=== PATIENT | female | born 1975 | race Caucasian/White ===

== ENCOUNTER 2017-07-13 23:56 | Emergency (ER) | payer OTHER ==
[2017-07-14] MEDS ORDERED: Promethazine HCl 25 MG/ML VIAL ONE (01:09)
[2017-07-14 01:47] LABS: Hemoglobin 12.4 g/dL (12.0-16.0); Mean Corpuscular HGB CONC 35.8 g/dL (32.0-36.0); Mean Corpuscular Hemoglobin 32.3 pg (27.0-31.0); Mean Corpuscular Volume 90.1 fl (81.0-99.0); Mean Platelet Volume 7.3 fL (7.4-10.4); Platelet Count 195 thou/uL (130-400); RBC Distribution Width 11.4 % (11.5-14.5); Red Blood Cell (RBC) Count 3.84 mill/uL (4.20-5.40); White Blood Cell (WBC) Count 5.5 thou/uL (4.8-10.8)
[2017-07-14 01:57] LABS: ALT (SGPT) 15 U/L (8-55); AST (SGOT) 13 U/L (5-34); Albumin 3.8 g/dL (3.5-5.0); Alkaline Phosphatase 52 U/L (40-150); Anion Gap 12 mmol/L (10-20); BUN (Urea Nitrogen) 9 mg/dL (7.0-18.7); Bilirubin, Total 0.9 mg/dL (0.2-1.2); Calc. Creatinine Clearance 0 mL/min (70-130); Calcium 8.4 mg/dL (7.8-10.44); Carbon Dioxide 25 mmol/L (22-29); Chloride 107 mmol/L (98-107); Estimated GFR-MDRD Greater than 90; Globulin 2.1 g/dL (2.4-3.5); Glucose 98 mg/dL (70-105); Lipase 34 U/L (8-78); Potassium 3.8 mmol/L (3.5-5.1); Protein, Total 5.9 g/dL (6.0-8.3); Sodium 140 mmol/L (136-145)
[2017-07-14 01:58] LABS: Band 1 % (5-11); Eosinophils 2 % (0-10); Lymphocytes 32 % (21-51); MDiff Complete? YES; Monocytes 7 % (0-10); Neutrophil 58 % (42-75)
[2017-07-14] MEDS ORDERED: diphenhydrAMINE 50 MG/ML VIAL ONE (02:29)
== END 2017-07-14 03:04 | disposition home or self-care (01) ==
LOC: SCSER 23:56
DX: R19.7 Diarrhea, unspecified (principal); R11.0 Nausea
CPT/HCPCS: 80053; 82150; 83690; 85025; 86140; 96365; 96366; 96375; J1200; J2550

== ENCOUNTER 2018-01-15 06:20 | Observation (INO) | payer OTHER, SELFPAY ==
[2018-01-15] MEDS ORDERED: Fentanyl 100 MCG/2 ML VIAL ONE ×2 (06:53→08:02)
[2018-01-15 07:04] LABS: Bilirubin Small (Negative); Blood, Urine Moderate (Negative); Clarity Turbid (Clear); Glucose, Urine (Dipstick) Negative (Negative); Leukocyte Negative (Negative); Nitrite Negative (Negative); Protein, Urine (Dipstick) 30 mg/dL (Neg-Trace); pH, Urine 5.5 (5.0-9.0)
[2018-01-15 07:04] LABS: #Basophils 0.1 thou/uL (0.0-0.2); #Lymphocytes 1.9 thou/uL (1.20-3.40); #Monocytes 0.8 thou/uL (0.11-0.59); #Neutrophils 9.6 thou/uL (1.40-6.50); %Basophils 0.7 % (0.0-1.0); %Eosinophils 0.2 % (0.0-10.0); %Lymphocytes 15.4 % (21.0-51.0); %Monocytes 6.6 % (0.0-10.0); %Neutrophils 77.1 % (42.0-75.0); Hemoglobin 15.2 g/dL (12.0-16.0); Mean Corpuscular HGB CONC 34.2 g/dL (32.0-36.0); Mean Corpuscular Hemoglobin 30.7 pg (27.0-31.0); Mean Corpuscular Volume 89.8 fL (78.0-98.0); Mean Platelet Volume 9.3 fL (7.4-10.4); Platelet Count 210 thou/uL (130-400); RBC Distribution Width 11.9 % (11.5-14.5); Red Blood Cell (RBC) Count 4.96 mill/uL (4.20-5.40); White Blood Cell (WBC) Count 12.4 thou/uL (4.8-10.8)
[2018-01-15 07:17] LABS: Bacteria/HPF 4+ HPF (None Seen); Hyaline Casts/LPF NONE SEEN LPF (0-3 Hyaline); Specific Gravity, Urine 1.023 (1.002-1.036)
[2018-01-15 07:17] LABS: ALT (SGPT) 14 U/L (8-55); AST (SGOT) 13 U/L (5-34); Albumin 4.5 g/dL (3.5-5.0); Alkaline Phosphatase 73 U/L (40-150); Anion Gap 15 mmol/L (10-20); BUN (Urea Nitrogen) 10 mg/dL (7.0-18.7); Bilirubin, Total 1.5 mg/dL (0.2-1.2); Calc. Creatinine Clearance 0 mL/min (70-130); Calcium 9.6 mg/dL (7.8-10.44); Carbon Dioxide 25 mmol/L (22-29); Chloride 103 mmol/L (98-107); Estimated GFR-MDRD 89; Glucose 96 mg/dL (70-105); Lipase 30 U/L (8-78); Potassium 3.5 mmol/L (3.5-5.1); Protein, Total 7.5 g/dL (6.0-8.3); Sodium 139 mmol/L (136-145)
--- NOTE | 2018-01-15 08:49 | CT ---
ABDOMEN CT SCAN WITHOUT IV CONTRAST: HISTORY: A 42-year-old female with a history of abdominal pain with nausea, vomiting, and diarrhea. HISTORY: of prior hysterectomy and cholecystectomy. FINDINGS: The lung bases are clear. Status post cholecystectomy with some mild dilatation of the common bile d uct and central intrahepatic ducts. The visualized pancreas, spleen, and adrenal glands appear withi n normal limits. Multiple nonobstructing bilateral renal calculi. No evidence for overt acute ob struction. There are some fairly marked edematous changes and wall thickening of the distal transver se colon extending from near the level of the splenic flexure approximately over a course of 10-15 cm . There is no evidence for associated diverticulum. This abnormal thickening is nonspecific but foc al acute colitis would be a strong consideration. I think this would be unlikely to represent neopla sm given the length of involvement. Also, diverticulitis would be considered unlikely since there ar e no diverticula and this is an unusual place for diverticulitis, but any nonspecific focal colitis c ould certainly have this appearance. There is no evidence for significant small bowel dilatation. T here are some loops of small bowel which have some borderline thickened serrano, but this is probably r elated to under distention. There is a normal-appearing appendix. A 3.7 cm diameter left ovarian/ad nexal cyst. No abscess or abnormal fluid collection. IMPRESSION: Fairly long segment of marked abnormal wall thickening involving the distal transverse colon, possibl y some type of nonspecific colitis. Multiple nonobstructing bilateral renal calculi, but no evidence for an overt obstruction. Normal-appearing appendix. Status post cholecystectomy. A 3.7 cm alba meter left ovarian/adnexal cyst. POS: [facility]
[2018-01-15] MEDS ORDERED: Ondansetron PF 4 MG/2 ML Vial ONE (10:03)
[2018-01-15] MEDS ORDERED: methylPREDNISolone Sod Succ/PF 125 MG/2 ML VIAL ONE (10:17)
[2018-01-15] MEDS ORDERED: Sterile Water 10 ML ONE (10:18)
[2018-01-15] MEDS ORDERED: diphenhydrAMINE 50 MG/ML VIAL ONE (10:18)
[2018-01-15] MEDS ORDERED: Albuterol Sulfate 2.5 mg/0.5 ml Neb ONE (10:27)
[2018-01-15] MEDS ORDERED: Sodium Chloride For Inhalation 0.9% 3 ML NEB ONE (10:28)
[2018-01-15] MEDS ORDERED: Ondansetron ODT 4 MG TAB SL PRN (11:49)
[2018-01-15] MEDS ORDERED: Ondansetron PF 4 MG/2 ML Vial IVP PRN (11:49)
[2018-01-15] MEDS ORDERED: Dextrose 5 %-0.45 % NaCl 1,000 ML IV SCH (12:00)
[2018-01-15 13:21] VITALS: BMI 22.5
[2018-01-15] MEDS: Sodium Chloride 0.9% 1,000 ML IV SCH ×2 (14:14→22:43)
--- NOTE | 2018-01-15 14:33 | HP ---
DATE OF ADMISSION: 01/15/2018 PRIMARY CARE PHYSICIAN: Tavares Herrera M.D. CHIEF COMPLAINT: Nausea, vomiting, bloody diarrhea. HISTORY OF PRESENTILLNESS: Ms. Almeida is a pleasant 42-year-old female who presented to the ER in [place] earlier this morning after nausea, vomiting, and bloody diarrhea for the previous 12 hours. She reports traveling out of town to [place], [place], where she ate out at a restaurant, which is unusual for her. Reports that she ate two bites and then started having severe cramping. Reports when she got home, she started having nausea and diarrhea and noticed a junior red blood in the toilet with a small amount of diarrhea and stool. Reports that she had run out of her bethanechol which she takes with her meals but Dr. Herrera was able to refill that for her last night and she has had 1 dose. Currently, she is lying in bed and feeling much better. Reports some nausea, some epigastric pain. Denies any diarrhea since she has been in the emergency room and on the floor here. The patient does have significant history of GI. She has a history of celiac disease and gastroparesis per patient. She states she has had her gallbladder removed. Reports after she had her gallbladder was removed, she had to go back because she was leaking fluid from her pancreas. She has had acute liver dysfunction during the of her second child after which her dietary issues worsened and she tries to stick to a very strict diet. She has seen Dr. Persaud in the past for her GI issues. REVIEW OF SYSTEMS: CONSTITUTIONAL: The patient denies chills or fever. EYES: Negative eye review of systems. ENT: Negative ears, nose, and throat. Denies ear pain or throat pain. CARDIOVASCULAR: Denies any chest pain or palpitations. RESPIRATORY: Denies cough. Denies shortness of breath. GASTROINTESTINAL: Please see the HPI. MUSCULOSKELETAL: Denies any arthralgias, myalgias, any trauma or injury. SKIN: Denies any rashes, changes to her skin. NEUROLOGIC: Denies any focal neurological changes. PSYCHIATRIC: Denies any recent changes to mood, affect and all other review of systems are negative except as listed in HPI. PHYSICAL EXAMINATION: VITAL SIGNS: Blood pressure 98/43, pulse 88, respirations 18, temperature 98.7 , 100% on room air. HEENT: Atraumatic, normocephalic. Eyes, eyelids are normal to inspection. Pupils are equally round and reactive to light. Extraocular muscles are intact. ENT, mucous membranes are moist. NECK: Normal range of motion. Trachea is midline. RESPIRATORY: Chest, breath sounds are clear to auscultation. No wheezing. No rales. Chest movement is symmetrical, expansion is equal. CARDIOVASCULAR: S1, S2. Heart sounds are normal. ABDOMEN: Patient is tender, epigastric, and mild diffuse tenderness to palpation. BACK: Normal range of motion. Normal inspection. Denies any CVA tenderness. EXTREMITIES: Upper extremity inspection is normal with normal range of motion. Lower extremities, normal range of motion. Inspection is normal. No pedal edema is noted. NEUROLOGIC: The patient is oriented to person, place and time. Speech is normal. No focal motor or sensory deficits. SKIN: Warm, dry, and normal in color. PSYCHIATRIC: The patient has a normal affect. PAST MEDICAL HISTORY: Include celiac disease, IBS, gastroparesis, has had abnormal liver enzymes in the past. PAST SURGICAL HISTORY: Tonsillectomy, cholecystectomy, complete hysterectomy. FAMILY HISTORY: Pertinent for mother with multiple myeloma, IBS, depression, and basal cell carcinoma, and her Father has hypertension. IMPRESSION FINDINGS: 1. Colitis. The patient had an abdomen and pelvis CT which showed large segment of the distal transverse colon with wall thickening and suspicion of colitis. The patient will remain n.p.o. We will collect stool samples. Hydrate with IV fluids. We will consult GI. Hospital stay will be dependent on clinical course. DARIAN
[2018-01-15] MEDS ORDERED: Iopamidol 300 61% 100 ML VIAL FS ONE (16:18)
--- NOTE | 2018-01-15 16:39 | PDOC.EVN ---
Event Note - Event Note Event Note: seen and examined, clinical course and plan discussed. concur with plan
[2018-01-15] MEDS ORDERED: Zolpidem Tartrate 5 MG TAB PO SCH (21:00)
[2018-01-15] MEDS ORDERED: Morphine 2 MG/ML SYRINGE SLOW IVP SCH (21:15)
[2018-01-15] MEDS ORDERED: Fentanyl 100 MCG/2 ML VIAL SLOW IVP SCH (22:00)
[2018-01-15] MEDS ORDERED: Promethazine HCl 25 MG/ML VIAL IM/IV PRN (22:02)
[2018-01-15] MEDS ORDERED: Promethazine HCl 25 MG in Sodium Chloride 0.9% 50 ML IVPB PRN (22:20)
--- NOTE | 2018-01-16 04:05 | CON ---
DATE OF CONSULTATION: 01/15/2018 CHIEF COMPLAINT: Abdominal pain, diarrhea, and blood in stool. HISTORY OF PRESENT ILLNESS: Ms. Almeida is a 42-year-old woman who was doing fine at her usual state of health earlier in the day. She ate at a [employer] restaurant and had some cooked chicken and rice wi th some oil and then immediately started feeling cramping abdominal pain and nausea and later that ev ening last night she went home, she had 4 episodes of diarrhea with progressively larger amounts of r ed blood. Today, she has continued to have some abdominal pain, but has had no further stool output or diarrhea. She has ongoing chronic epigastric aching pain, which is stable. This evening, she has again worsening diffuse abdominal pain. She had a CT scan when she came in that showed thickening o f the distal transverse colon to the splenic flexure. She has not taken any migraine medication. Enrique diaz has a long history of irritable bowel and otherwise functional bowel disease. She underwent EGD an d colonoscopy by Dr. Persaud back in 2011. The biopsies from the duodenum were negative for celiac di sease. Colonoscopy was normal to the terminal ileum. She later underwent cholecystectomy for biliar y dyskinesia. Following the cholecystectomy, she developed acute pancreatitis for which the etiology was not determined. She was readmitted second time with pancreatitis shortly after the initial epis ode. She was evaluated by Dr. Cartwright done in [place] who at that time did not recommend endoscopic ultrasound or ERCP. MRCP was performed that did not show any retained stone. More recently, she mov ed to [facility] and was evaluated by GI there. Couple of years ago, she underwent endoscopy a gain there. She had placed herself on a gluten free diet a few years ago and found that any intake o f gluten causes severe cramping and diarrhea and nausea. She has been on a strict gluten-free diet. Biopsies therefore more recently per her report were not diagnostic of celiac disease as she was on a strict gluten-free diet at that time and she had genetic testing that showed that she was high susc eptibility for celiac. She also had a gastric emptying scan for the chronic nausea and states that s he was diagnosed with gastroparesis. She does not know what percent emptying her stomach was at the end of the 4-hour study. She has a history of allergy to Reglan. She was started on bethanechol and she feels this has significantly helped her chronic nausea. She also has had no diarrhea in the las t several months leading up to this episode. She, if anything had mild constipation, but still would have a bowel movement or two most days. She does avoid lettuce and carrots due to the history of ga stroparesis. PAST MEDICAL HISTORY: Pancreatitis, possible gastroparesis, WHEAT intolerance. PAST SURGICAL HISTORY: Tonsillectomy, cholecystectomy, hysterectomy, complete. FAMILY HISTORY: Her mother just of multiple myeloma couple of months ago. SOCIAL HISTORY: No alcohol, no smoking, no drugs. She has 2 children, age 12 and 9. ALLERGIES: She had ZOFRAN today that cause shortness of breath; however, she has always tolerated it in the past. She has allergy to METOCLOPRAMIDE, SULFA, AND BACTRIM. CURRENT MEDICATIONS: Include bethanechol, escitalopram as an outpatient. She is on Ambien. REVIEW OF SYSTEMS: Positive for headache, otherwise negative x10 systems reviewed except as stated i n history of present illness. PHYSICAL EXAMINATION: VITAL SIGNS: Temperature 98.7, pulse 77, blood pressure 97/51. GENERAL: She is in no acute distress. She is alert and oriented x3. HEENT: Eyes have no scleral icterus. Oropharynx is clear, without lesions. NECK: No cervical or supraclavicular lymphadenopathy. LUNGS: Clear to auscultation bilaterally. HEART: Regular rate and rhythm without murmur. ABDOMEN: Soft, diffusely tender without any guarding. Bowel sounds are present. EXTREMITIES: No lower extremity edema. NEUROLOGIC: Cranial nerves are grossly intact. LABORATORY DATA: White blood cell count 12.4, hemoglobin 15.2, platelets 210, creatinine 0.72, bilir ubin 1.5, AST 13, ALT 14, alkaline phosphatase 73, lipase 30, albumin 4.5. IMAGING: She had a CT scan of the abdomen and pelvis that showed thickening of the distal transverse colon to the splenic flexure. IMPRESSION: 1. Acute onset diarrhea and hematochezia along with chronic epigastric abdominal pain and nausea. H er symptoms would most likely be due to an acute infectious gastroenteritis; however, the diarrhea is now completely resolved and the CT scan findings show more focal area of colon thickening. The find ings on the CT would be most concerning for ischemic colitis; however, given her age of 42, no other risk factors that seems less likely. She has been unable to produce a stool sample since she has had no further diarrhea. Again, she might have had an ischemic process that improved just with hydratio n. She has had progressive worsening of her nausea and abdominal pain this evening; however. We dmitriy l also need to rule out inflammatory bowel disease. Again, I think this is less likely. It would be helpful to obtain the prior records regarding her other diagnoses of gastroparesis. 2. Questionable gastroparesis. She has been on bethanechol for that. We will request the prior gas tric emptying scan results. 3. 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 She is on a strict gluten-free diet. She did have biopsies from her duodenum in 2012 which were negative for celiac disease. She did have increased genetic ri sk based on genetic studies. RECOMMENDATIONS: Colonoscopy tomorrow.
[2018-01-16 04:34] LABS: ALT (SGPT) 13 U/L (8-55); AST (SGOT) 13 U/L (5-34); Albumin 3.1 g/dL (3.5-5.0); Alkaline Phosphatase 47 U/L (40-150); Anion Gap 10 mmol/L (10-20); BUN (Urea Nitrogen) 5 mg/dL (7.0-18.7); Bilirubin, Total 0.6 mg/dL (0.2-1.2); Calc. Creatinine Clearance 114 mL/min (70-130); Calcium 8.1 mg/dL (7.8-10.44); Carbon Dioxide 23 mmol/L (22-29); Chloride 111 mmol/L (98-107); Estimated GFR-MDRD Greater than 90; Globulin 1.8 g/dL (2.4-3.5); Glucose 85 mg/dL (70-105); Potassium 3.8 mmol/L (3.5-5.1); Protein, Total 4.9 g/dL (6.0-8.3); Sodium 140 mmol/L (136-145)
[2018-01-16] MEDS: Sodium Chloride 0.9% 1,000 ML IV SCH ×3 (04:38→16:33)
[2018-01-16 04:59] LABS: #Lymphocytes 1.2 thou/uL (1.20-3.40); #Monocytes 0.7 thou/uL (0.11-0.59); #Neutrophils 7.5 thou/uL (1.40-6.50); %Basophils 0.2 % (0.0-1.0); %Eosinophils 0.1 % (0.0-10.0); %Lymphocytes 12.5 % (21.0-51.0); %Monocytes 7.4 % (0.0-10.0); %Neutrophils 79.9 % (42.0-75.0); Hemoglobin 11.1 g/dL (12.0-16.0); Mean Corpuscular HGB CONC 33.1 g/dL (32.0-36.0); Mean Corpuscular Hemoglobin 31.8 pg (27.0-31.0); Mean Corpuscular Volume 95.8 fL (78.0-98.0); Mean Platelet Volume 8.6 fL (7.4-10.4); Platelet Count 155 thou/uL (130-400); Red Blood Cell (RBC) Count 3.49 mill/uL (4.20-5.40); White Blood Cell (WBC) Count 9.3 thou/uL (4.8-10.8)
[2018-01-16] MEDS ORDERED: GoLYTELY 4,000 ml Bottle PO SCH (06:00)
[2018-01-16] MEDS ORDERED: Ibuprofen 600 MG TAB PO SCH (06:30)
[2018-01-16] MEDS ORDERED: diphenhydrAMINE 12.5 MG/5 ML UDCUP PO SCH (06:30)
[2018-01-16] MEDS: Escitalopram Oxalate 10 mg Tablet PO SCH ×2 (08:50→08:52)
[2018-01-16] MEDS ORDERED: ePHEDrine/0.9% NaCl/PF SYRINGE 50 mg/10 ml ONE (11:35)
[2018-01-16] MEDS ORDERED: PHENYLEPHRINE-NS 100 MCG/ML 10 ML SYRINGE ONE (11:35)
[2018-01-16] MEDS ORDERED: PROPOFOL 200 MG/20 ML VIAL ONE (11:35)
--- NOTE | 2018-01-16 11:43 | PDOC.PN ---
- Subjective Encounter Start Date: 01/16/18 Encounter Start Time: 11:00 -: f/u on admission for colitis, had n/v and bloody diarrhea -: Had colon prep today for colonoscopy later today - Objective Resuscitation Status: Resuscitation Status FULL:Full Resuscitation Vital Signs & Weight: Vital Signs (12 hours) Temp Pulse Resp BP Pulse Ox 01/16/18 07:48 98.1 F 74 18 111/52 L 97 01/16/18 03:53 98.5 F 66 14 89/53 L 96 01/16/18 01:02 14 Weight Weight 57.748 kg I&O: 01/15/18 01/16/18 01/17/18 06:59 06:59 06:59 Intake Total 3289 Output Total 150 Balance 3139 Result Diagrams: 01/16/18 03:40 01/16/18 03:40 Phys Exam - Physical Examination Constitutional: NAD HEENT: PERRLA, moist MMs Neck: no nodes, no JVD Respiratory: clear to auscultation bilateral Cardiovascular: RRR, no significant murmur Gastrointestinal: soft, non-tender, no distention, positive bowel sounds Musculoskeletal: no edema, pulses present Neurological: non-focal, normal sensation, moves all 4 limbs Psychiatric: normal affect, A&O x 3 Skin: no rash, normal turgor Dx/Plan (1) Colitis Code(s): K52.9 - NONINFECTIVE GASTROENTERITIS AND COLITIS, UNSPECIFIED Status : Acute - Plan cont current plan of care -: Did colon prep, scheduled for colonscopy for this afternoon -: Will await recommendations from GI physician -: Will monitor labs, cont plan of care * .
[2018-01-16] MEDS ORDERED: Promethazine HCl 25 MG/ML VIAL SLOW IVP PRN (14:17)
[2018-01-16] MEDS ORDERED: Promethazine HCl 25 MG/ML VIAL IM PRN (14:17)
[2018-01-16 16:03] VITALS: BP 97/50; TEMP 98.5
--- NOTE | 2018-01-17 15:03 | DIS ---
DATE OF ADMISSION: 01/15/2018 DATE OF DISCHARGE: 01/16/2018 CHIEF COMPLAINT: Nausea, vomiting, bloody diarrhea. PRIMARY CARE PHYSICIAN: Dr. Herrera. CONSULTANTS: Dr. Ram. CODE STATUS: FULL. DISCHARGE DIAGNOSES: 1. Acute onset of diarrhea, hematochezia, resolved. 2. Chronic epigastric abdominal pain and nausea. 3. 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 4. Gastroenteritis, resolving. PROCEDURES: Colonoscopy, samples were taken from the transverse colon. OP note not currently available. The patient also had an abdominal CT scan with an impression of a fairly long segment of marked abnormal wall thickening involving the distal transverse colon. REVIEW OF SYSTEMS: Constitutional: Denies fevers or chills. Eyes: Negative review of systems. ENT: Negative for ear, nose and throat complaints. Denies ear pain, or throat pain. Cardiovascular: Denies any chest pain or palpitations. Respiratory: Denies cough, shortness of breath. Gastrointestinal: The patient reports decreased epigastric pain. Denies any nausea, denies any vomiting overnight. Musculoskeletal: Denies any arthralgias , myalgias. Neurological: Denies any focal changes. Psychiatric: Denies any recent changes to mood. PHYSICAL EXAMINATION: VITAL SIGNS: Temperature is 98.5, pulse is 65, respirations are 12, O2 sats are 95%, blood pressure 97/50. GENERAL: The patient appears nontoxic, alert and oriented. HEENT: Atraumatic, normocephalic head. Eyelids are normal to inspection. Pupils are equally round and reactive to light. Extraocular muscles are intact. Mucous membranes are moist. NECK: Normal range of motion. Trachea is midline. RESPIRATORY: Breath sounds are clear to auscultation. No wheezing, no rales. Chest movement is symmetrical. CARDIOVASCULAR: S1, S2. Heart sounds are normal. ABDOMEN: Nontender, bowel sounds x4 quadrants. BACK: Normal range of motion, normal inspection. Denies any CVA tenderness. EXTREMITIES: Strength equal x4. Pulses and sensation are equal. NEUROLOGIC: The patient is oriented to person, place and time. Speech is normal. SKIN: Normal in color. Warm and dry. PSYCHIATRIC: The patient has a normal affect. HOSPITAL COURSE: Ms. Almeida is a pleasant 42-year-old female who presented to the ER in [place] after an abrupt onset of nausea, vomiting , and bloody diarrhea over the last 12 hours after she ate out at a restaurant in [place], reports that she had two bites of her food and started having cramping. When she got home, she started having nausea and diarrhea and noticed junior red blood in the toilet with liquid stool. She had reported that she had run out of her bethanechol, but was able to obtain a refill and had taken one dose. Reports some nausea while she was hospitalized on the observation unit. Dr. Ram was able to consult with her and a colonoscopy was agreed upon. Patient had the prep this morning and the colonoscopy this afternoon/ . She was able to eat supper when she got back to her room after the procedure. The patient is anxious to return home as she is the primary caregiver for her [address] Ram agreed with a discharge home as long as she can eat and tolerate her food prior to discharge, which she was able to do. ALLERGIES: Include REGLAN, ONDANSETRON, SULFA, and TRIMETHOPRIM from Bactrim. DISCHARGE MEDICATIONS: Patient will be continued on her medications including Bethanechol 25 mg p.o. t.i.d., Lexapro 5 mg p.o. daily, and Ambien 5 mg p.o. at bedtime as needed for sleep. CONDITION: Stable. DISCHARGE INSTRUCTIONS: The patient will be discharged to home. Referral to PCP within 1 week and also with Dr. Persaud or Dr. Ram within the next 1-2 weeks. [facility]ITAL[facility]
--- NOTE | 2018-01-19 14:27 | OP ---
DATE OF PROCEDURE: 01/16/2018 PROCEDURE: Colonoscopy with biopsy. PREOPERATIVE DIAGNOSES: Hematochezia, abnormal CT scan and acute diarrhea. OPERATIVE DETAIL: Informed consent was obtained from the patient. She was sedated with total intravenous anesthesia. Rectal exam was performed and was normal. The colonoscope was advanced to the ileum without difficulty. The mucosa of the terminal ileum was normal. The ileocecal valve and appendiceal orifice were clearly identified. The colon preparation quality was good. There were multiple broadbased shallow white ulcers in the distal transverse, splenic flexure and proximal descending colon. The remainder of the colonic mucosa was normal throughout. Retroflexed views in the rectum were normal. Biopsies were obtained from the ulcerated segment. IMPRESSION: 1. Ischemic colitis with multiple ulcers in the distal, transverse and proximal descending colon. Multiple biopsies were obtained. 2. Otherwise normal ileal colonoscopy. RECOMMENDATIONS: 1. Await histopathology. 2. CT scan was reviewed with Radiology and confirmed patent mesenteric and celiac arteries. The veins appear patent as well. 3. Urine drug screen. MTDD
== END 2018-01-16 19:05 | disposition home or self-care (01) ==
LOC: SCSER 06:20 → 2SW 08:10
PROVIDERS: ADMIT Family Medicine; ATTEND Family Medicine
PROC: 0DBM8ZX Excision of Descending Colon, Via Natural or Artificial Opening Endoscopic, Diagnostic (ICD-10-PCS; principal; 2018-01-16)
PROC: 0DBL8ZX Excision of Transverse Colon, Via Natural or Artificial Opening Endoscopic, Diagnostic (ICD-10-PCS; 2018-01-16)
DX: K55.9 Vascular disorder of intestine, unspecified (principal); K51.90 Ulcerative colitis, unspecified, without complications; K90.0 Celiac disease; K31.84 Gastroparesis; Z79.899 Other long term (current) drug therapy; Z90.49 Acquired absence of other specified parts of digestive tract; Z88.2 Allergy status to sulfonamides; Z88.8 Allergy status to other drugs, medicaments and biological substances
CPT/HCPCS: 36415; 74177; 80053; 81003; 81015; 82274; 83630; 83690; 85025; 87045; 87046; 87086; 87324; 87449; 87899; 88305; 90471; 90686; 94640; 96361; 96365; 96374; 96375; 96376; A4216; G0008; G0378; J1200; J2270; J2405; J2550; J2704; J2930; J3010; J7050; J7611